=== PATIENT | male | born 1990 | race African-American/Black ===

== ENCOUNTER 2016-12-17 17:52 | Emergency (ER) | payer OTHER ==
[2016-12-17 18:50] VITALS: BP 123/75; PULSE 81; RESP 16; TEMP 98.7
[2016-12-17] MEDS ORDERED: PROPARACAINE 0.5% OPHTH DROPS 15 ML BTL BOTH EYES STA (19:08)
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
[2016-12-17] MEDS ORDERED: ERYTHROMYCIN 5 MG/GM OPHTH OINT 3.5 GM TUBE LEFT EYE SCH (20:00)
[2016-12-17] MEDS ORDERED: IBUPROFEN 800 MG TAB PO STA (20:22)
[2016-12-17] MEDS ORDERED: ACETAMINOPHEN TAB 500 MG TAB PO STA (20:22)
== END 2016-12-17 20:41 | disposition home or self-care (01) ==
LOC: EC 17:52
DX: H11.32 Conjunctival hemorrhage, left eye (principal); S30.1XXA Contusion of abdominal wall, initial encounter; R51 Headache; Y04.8XXA Assault by other bodily force, initial encounter
CPT/HCPCS: 70486; 99284

== ENCOUNTER 2022-03-23 12:41 | Emergency (ER) | payer OTHER ==
[2022-03-23 12:46] VITALS: BP 119/76; PULSE 80; RESP 16; TEMP 98.2
--- NOTE | 2022-03-23 12:56 | ED ---
ENT HPI - General Chief complaint: ENT Stated complaint: COVID test Time Seen by Provider: 03/23/22 12:50 Source: patient, RN notes reviewed, old records reviewed Mode of arrival: ambulatory Limitations: no limitations - History of Present Illness Initial comments: This is a well-appearing 31-year-old male that presents to the emergency room ambulatory with complaints of a sore throat and body aches since this morning. Patient denies any fevers, no nausea vomiting or diarrhea. He states that he just wants a Covid test to see if he has been infected before he goes back to work. Patient does smoke marijuana daily, denies cigarette use. MD complaint: sore throat, other (body aches) Location: throat Severity scale (1-10): 0 Quality: other (sore) Associated Symptoms: sore throat, other (Bodyaches) - Related Data Previous Rx's Medication Instructions Recorded Erythromycin Ophth Oint [Romycin 1 applic LEFT EYE QID #1 gm 12/17/16 Ophth Oint] Nirmatrelvir/Ritonavir [Paxlovid 1 each PO BID 5 Days #1 pack 03/23/22 150-100 mg Pack (Eua)] Allergies Allergy/AdvReac Type Severity Reaction Status Date / Time No Known Allergies Allergy Verified 03/23/22 12:46 Review of Systems ROS Statement: Those systems with pertinent positive or pertinent negative responses have been documented in the HPI. ROS Other: All systems not noted in ROS Statement are negative. Past Medical History Past Medical History: No Reported History Additional Past Medical History / Comment(s): . History of Any Multi-Drug Resistant Organisms: None Reported Past Surgical History: No Surgical Hx Reported Past Psychological History: No Psychological Hx Reported Past Alcohol Use History: None Reported Past Drug Use History: Marijuana General Exam Limitations: no limitations General appearance: alert, in no apparent distress Head exam: Present: atraumatic Eye exam: Present: EOMI. Absent: conjunctival injection, periorbital swelling, periorbital tenderness ENT exam: Present: normal oropharynx, mucous membranes moist Expanded Mouth exam: Present: tongue normal, tongue elevation. Absent: drooling, trismus, muffled voice Throat exam: negative: tonsillar erythema, tonsillomegaly, tonsillar exudate, R peritonsillar mass, L peritonsillar mass Neck exam: Present: normal inspection, full ROM. Absent: tenderness, meningismus, lymphadenopathy Respiratory exam: Present: normal lung sounds bilaterally. Absent: respiratory distress, accessory muscle use Cardiovascular Exam: Present: regular rate GI/Abdominal exam: Present: soft Extremities exam: Present: normal capillary refill Back exam: Absent: tenderness, CVA tenderness (R), CVA tenderness (L) Neurological exam: Present: alert, oriented X3, normal gait Psychiatric exam: Absent: normal affect, normal mood Skin exam: Present: warm, dry, normal color. Absent: cyanosis, diaphoretic Course Vital Signs 03/23/22 12:45 Temperature 98.2 F Pulse Rate 80 Respiratory 16 Rate Blood Pressure 119/76 O2 Sat by Pulse 98 Oximetry Medical Decision Making - Medical Decision Making Vital signs are stable, oxygen saturation is 98% on room air. Lungs sounds are clear to auscultation. Patient is afebrile. His coronavirus testing is positive. He has not been vaccinated. He was offered Paxlovid which he agreed to. Prescription was called into his pharmacy. He was directed to follow-up with his primary care doctor. Return to the emergency room with any new or concerning symptoms. He is agreeable to this plan of care. Case was discussed with Dr Olson. - Lab Data Lab Results 03/23/22 Range/Units 12:59 Coronavirus (PCR) Detected A (Not Detectd) Disposition Clinical Impression: COVID-19 Disposition: HOME SELF-CARE Condition: Good Instructions (If sedation given, give patient instructions): COVID-19 (Coronavirus Disease 2019) (ED) Additional Instructions: Self quarantine for 10 days from symptom onset. If after 5 days you have no symptoms you can go into public wearing just a mask. I recommend vitamin C, vitamin D and zinc in addition to Tylenol and/or Motrin as needed for body aches or fevers. Return to emergency room with any new or concerning symptoms including difficulty breathing, chest pain or persistent nausea vomiting. Prescriptions: Nirmatrelvir/Ritonavir [Paxlovid 150-100 mg Pack (Eua)] 1 each PO BID 5 Days #1 pack Is patient prescribed a controlled substance at d/c from ED?: No Referrals: None,Stated [Primary Care Provider] - 1-2 days Time of Disposition: 13:30
== END 2022-03-23 13:50 | disposition home or self-care (01) ==
LOC: EC 12:41
DX: U07.1 COVID-19 (principal); F12.10 Cannabis abuse, uncomplicated
CPT/HCPCS: 87635; 99283

== ENCOUNTER 2022-08-23 09:57 | Emergency (ER) | payer OTHER ==
[2022-08-23 10:03] VITALS: BP 123/77; PULSE 68; RESP 18; TEMP 97.8
--- NOTE | 2022-08-23 10:18 | ED ---
Male Urogenital HPI - General Chief complaint: Urogenital Stated complaint: STD/STI test Time Seen by Provider: 08/23/22 10:07 Source: patient Mode of arrival: ambulatory - History of Present Illness Initial comments: Patient is a 32-year-old male who presents to the emergency department for STI testing. Patient had unprotected sex 5 days ago. His partner does not have a known STI. He is asymptomatic. Denies fever, chills, abdominal pain, nausea, vomiting, burning with urination, blood in the urine, penile discharge, lesions. - Related Data Previous Rx's Medication Instructions Recorded Erythromycin Ophth Oint [Romycin 1 applic LEFT EYE QID #1 gm 12/17/16 Ophth Oint] Nirmatrelvir/Ritonavir [Paxlovid 1 each PO BID 5 Days #1 pack 03/23/22 150-100 mg Pack (Eua)] Allergies Allergy/AdvReac Type Severity Reaction Status Date / Time No Known Allergies Allergy Verified 08/23/22 10:02 Review of Systems ROS Statement: Those systems with pertinent positive or pertinent negative responses have been documented in the HPI. ROS Other: All systems not noted in ROS Statement are negative. Past Medical History Past Medical History: No Reported History Additional Past Medical History / Comment(s): . History of Any Multi-Drug Resistant Organisms: None Reported Past Surgical History: No Surgical Hx Reported Past Psychological History: No Psychological Hx Reported Smoking Status: Never smoker Past Alcohol Use History: None Reported Past Drug Use History: None Reported, Marijuana General Exam General appearance: alert, in no apparent distress Head exam: Present: atraumatic, normocephalic, normal inspection Eye exam: Present: normal appearance, PERRL, EOMI. Absent: scleral icterus, conjunctival injection, periorbital swelling Respiratory exam: Present: normal lung sounds bilaterally. Absent: respiratory distress, wheezes, rales, rhonchi, stridor Cardiovascular Exam: Present: regular rate, normal rhythm, normal heart sounds. Absent: systolic murmur, diastolic murmur, rubs, gallop, clicks GI/Abdominal exam: Present: soft, normal bowel sounds. Absent: distended, tenderness, guarding, rebound, rigid Neurological exam: Present: alert, oriented X3, CN II-XII intact Psychiatric exam: Present: normal affect, normal mood Skin exam: Present: warm, dry, intact, normal color. Absent: rash Course Vital Signs 08/23/22 09:58 Temperature 97.8 F Pulse Rate 68 Respiratory 18 Rate Blood Pressure 123/77 O2 Sat by Pulse 100 Oximetry Medical Decision Making - Medical Decision Making Was pt. sent in by a medical professional or institution (ZIA Dailey, TELEPHONE ORDER SUPERVISOR, urgent care, hospital, or half-way...) When possible be specific @ -[No] Did you speak to anyone other than the patient for history (EMS, parent, family, police, friend...)? What history was obtained from this source @ -[No] Did you review nursing and triage notes (agree or disagree)? Why? @ -[I reviewed and agree with nursing and triage notes] Were old charts reviewed (outside hosp., previous admission, EMS record, old EKG, old radiological studies, urgent care reports/EKG's, half-way records)? Report findings @ -[No old charts were reviewed] Differential Diagnosis (chest pain, altered mental status, abdominal pain women, abdominal pain men, vaginal bleeding, weakness, fever, dyspnea, syncope, headach e, dizziness, GI bleed, back pain, seizure, CVA, palpatations, mental health)? @ -chlamydia, gonorrhea, trichomonas EKG interpreted by me (3pts min.). @ -[As above] X-rays interpreted by me (1pt min.). @ -[None done] CT interpreted by me (1pt min.). @ -[None done] U/S interpreted by me (1pt. min.). @ -[None done] What testing was considered but not performed or refused? (CT, X-rays, U/S, labs)? Why? @ -[None] What meds were considered but not given or refused? Why? @ Considered giving empiric treatment for sexually transmitted infection however patient declined Did you discuss the management of the patient with other professionals (professionals i.e. ZIA Dailey, TELEPHONE ORDER SUPERVISOR, lab, RT, psych nurse, social media intern, photographer scientific, teacher, adult parole officer, block and case maker)? Give summary @ -[No] Was smoking cessation discussed for >3mins.? @ -[No] Was critical care preformed (if so, how long)? @ -[No] Were there social determinants of health that impacted care today? How? (Homelessness, low income, unemployed, alcoholism, drug addiction, transportation, low edu. Level, literacy, decrease access to med. care, fpc, rehab)? @ -[No] Was there de-escalation of care discussed even if they declined (Discuss DNR or withdrawal of care, Hospice)? DNR status @ -[No] What co-morbidities impacted this encounter? (DM, HTN, Smoking, COPD, CAD, Cancer, CVA, ARF, Chemo, Hep., AIDS, mental health diagnosis, sleep apnea, morbid obesity)? @ -[None] Was patient admitted / discharged? Hospital course, mention meds given and rout e, prescriptions, significant lab abnormalities, going to OR and other pertinent info. @ -This is an asymptomatic 32-year-old presenting for STI testing. Chlamydia, gonorrhea, Trichomonas tested via urine. Patient would like to wait for results before starting treatment. He will be discharged Undiagnosed new problem with uncertain prognosis? @ -[No] Drug Therapy requiring intensive monitoring for toxicity (Heparin, Nitro, Insulin, Cardizem)? @ -[No] Were any procedures done? @ -[No] Diagnosis/symptom? @ -screening for STI testing Acute, or Chronic, or Acute on Chronic? @ acute Uncomplicated (without systemic symptoms) or Complicated (systemic symptoms)? @ -uncomplicated Side effects of treatment? @ -[No] Exacerbation, Progression, or Severe Exacerbation? @ -[No] Poses a threat to life or bodily function? How? (Chest pain, [place], [place], pneumonia, PE, COPD, DKA, ARF, appy, cholecystitis, CVA, Diverticulitis, Homicidal, Suicidal, threat to staff... and all critical care pts) @ -[No] Dr. North is my attending. Disposition Clinical Impression: Screen for sexually transmitted diseases Disposition: HOME SELF-CARE Condition: Good Instructions (If sedation given, give patient instructions): Sexually Transmitted Diseases (ED), Male Condom Use (ED), Safe Sex Practices (ED) Additional Instructions: You will receive a phone call if your results are positive in one to 3 days. You can also call the hospital for results. Follow-up with primary care provider in one to 2 days. Return to the emergency department if you experience new, concerning, or worsening symptoms. Is patient prescribed a controlled substance at d/c from ED?: No Referrals: None,Stated [Primary Care Provider] - 1-2 days
[2022-08-23 10:22] LABS: Appearance,Urine Clear (Clear); Bilirubin,Urine Negative (Negative); Blood,Urine Negative (Negative); Color,Urine Yellow; Glucose,Urine (UA) Negative (Negative); Ketones,Urine Negative (Negative); Leukocyte Esterase,Urine Negative (Negative); Nitrite,Urine Negative (Negative); Protein,Urine Negative (Negative); Urobilinogen,Urine <2.0 mg/dL (<2.0)
[2022-08-24 13:43] LABS: C. trachomatis,PCR Negative (Neg,Equiv); Chlamydia trachomatis Source Urine; N. gonorrhoeae,PCR Negative (Neg,Equiv); Neisseria Source Urine
== END 2022-08-23 10:30 | disposition home or self-care (01) ==
LOC: EC 09:57
DX: Z11.3 Encounter for screening for infections with a predominantly sexual mode of transmission (principal); F12.90 Cannabis use, unspecified, uncomplicated
CPT/HCPCS: 81003; 87491; 87591; 87661; 99283

== ENCOUNTER 2022-08-25 11:47 | Emergency (ER) | payer OTHER ==
[2022-08-25 11:52] VITALS: BP 114/74; PULSE 95; RESP 18; TEMP 98.2
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
== END 2022-08-25 12:26 | disposition home or self-care (01) ==
LOC: EC 11:47
DX: Z00.00 Encounter for general adult medical examination without abnormal findings (principal)
CPT/HCPCS: 99283

== ENCOUNTER 2022-10-24 19:06 | Emergency (ER) | payer OTHER ==
[2022-10-24 19:17] VITALS: BP 123/82; PULSE 107; RESP 18; TEMP 98.9
[2022-10-24] MEDS ORDERED: KETOROLAC 15 MG/ML 1 ML VIAL IM STA (19:23)
--- NOTE | 2022-10-24 19:49 | XR ---
EXAMINATION TYPE: XR shoulder complete RT DATE OF EXAM: 10/24/2022 COMPARISON: NONE HISTORY: Shoulder pain TECHNIQUE: 3 views FINDINGS: There is no evidence of fracture nor dislocation. Glenohumeral joint is intact. There is 1 cm calcification in the axilla consistent with calcified lymph node. AC joint is intact IMPRESSION: Negative right shoulder exam. No fracture.
--- NOTE | 2022-10-24 19:50 | XR ---
EXAMINATION TYPE: XR wrist complete LT DATE OF EXAM: 10/24/2022 COMPARISON: NONE HISTORY: Wrist pain TECHNIQUE: 4 view FINDINGS: There is nondisplaced 1.4 cm chip fracture of the radial styloid process. There is no dislo cation. Carpal bones are intact. Scaphoid is intact. IMPRESSION: Acute nondisplaced radial styloid process fracture.
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
== END 2022-10-24 20:45 | disposition home or self-care (01) ==
LOC: EC 19:06
DX: S52.512A Displaced fracture of left radial styloid process, initial encounter for closed fracture (principal); X58.XXXA Exposure to other specified factors, initial encounter
CPT/HCPCS: 73030; 73110; 29125; 99283; 96372; J1885

== ENCOUNTER 2023-01-24 11:01 | Emergency (ER) | payer OTHER ==
[2023-01-24] MEDS ORDERED: KETOROLAC 15 MG/ML 1 ML VIAL IM STA (11:36)
[2023-01-24] MEDS ORDERED: HYDROmorphone 0.5 MG/0.5 ML SYRINGE IM STA (11:37)
--- NOTE | 2023-01-24 12:52 | XR ---
EXAMINATION TYPE: XR femur RT, XR tibia fibula RT, XR Hip RT and AP Pelvis DATE OF EXAM: 01/24/2023 12:36 PM INDICATION: Patient age:Male; 32 years old; Reason for study: injury; COMPARISON: None TECHNIQUE: The right femur was examined in Frontal and lateral projections. Right tibia and fibula are evaluated in frontal and lateral views. Right hip was evaluated in frontal and lateral views. FINDINGS/IMPRESSION: Acute spiral fracture of the distal fibula with soft tissue swelling. No additio nal fractures visualized femur patella and tibia appear intact.
[2023-01-24] MEDS ORDERED: ONDANSETRON ODT 4 MG TAB PO STA (13:00)
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
[2023-01-24] MEDS ORDERED: HYDROcodone/APAP 7.5-325MG 1 EACH TAB PO ONE (13:18)
[2023-01-24 14:46] VITALS: BP 114/68; PULSE 80; RESP 16; TEMP 98
== END 2023-01-24 14:46 | disposition home or self-care (01) ==
LOC: EC 11:01
DX: S82.401A Unspecified fracture of shaft of right fibula, initial encounter for closed fracture (principal); F12.90 Cannabis use, unspecified, uncomplicated; X58.XXXA Exposure to other specified factors, initial encounter; Y93.43 Activity, gymnastics
CPT/HCPCS: 73502; 73552; 73590; 99284; 96372 ×2; 29515; J1885; J1170

== ENCOUNTER 2023-01-26 13:46 | Day surgery (SDC) | payer OTHER ==
[2023-01-25 08:32] VITALS: BMI 23.5
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
[~2023-01-26 13:46] MED LIST: DEXAMETHASONE SOD PHOSPHATE 4 MG/ML 1 ML VIAL IV ONE; HYDROmorphone 0.5 MG/0.5 ML SYRINGE IVP PRN; LACTATED RINGERS 1,000 ML IV SCH; ONDANSETRON 4 MG/2 ML VIAL IVP ONE
[2023-01-26] MEDS ORDERED: MIDAZOLAM 2 MG/2 ML VIAL IVP ONE (14:43)
[2023-01-26] MEDS ORDERED: SUCCINYLCHOLINE CHLORIDE 200 MG/10 ML VIAL IV ONE (15:51)
[2023-01-26] MEDS ORDERED: MIDAZOLAM 2 MG/2 ML VIAL ONE (15:51)
[2023-01-26] MEDS ORDERED: PROPOFOL 10 MG/ML 20 ML VIAL IV ONE (15:51)
[2023-01-26] MEDS ORDERED: fentaNYL (PF) 50 MCG/ML 2 ML AMP ONE (15:51)
[2023-01-26] MEDS ORDERED: ROPIVACAINE 5 MG/ML 30 ML VIAL ONE (15:51)
[2023-01-26] MEDS ORDERED: GLYCOPYRROLATE 0.2 MG/ML 2 ML VIAL ONE (15:51)
[2023-01-26] MEDS ORDERED: LIDOCAINE 2% INJ 20 MG/ML (2 ML VIAL) ONE (15:51)
[2023-01-26] MEDS ORDERED: ROCURONIUM 10 MG/ML (5 ML VIAL) IV ONE (15:51)
[2023-01-26] MEDS ORDERED: NEOSTIGMINE 1 MG/ML 10 ML VIAL ONE (15:51)
[2023-01-26] MEDS ORDERED: LACTATED RINGERS 1,000 ML IV ONE (16:21)
--- NOTE | 2023-01-26 17:32 | FL ---
Intraoperative/procedural fluoroscopic services were provided. Total fluoroscopy time is 1 minute 3 s econds with a total of 5 submitted images to PACS. Please see the operative/procedural note for furth er details. DAP: 0.07 mGym2
--- NOTE | 2023-01-26 17:34 | P.OP ---
Date of Procedure: 01/26/23 Preoperative Diagnosis: Right lateral malleolar ankle fracture with syndesmotic disruption Postoperative Diagnosis: Same Procedure(s) Performed: Open reduction and internal fixation right lateral malleolar ankle fracture with syndesmotic fixation Implants: 7 hole one third tubular plate, tight rope syndesmotic fixation device Anesthesia: paty ROSS Surgeon: Carloz Munguia Epilepsy Physician #1: Hemant Mendosa Estimated Blood Loss (ml): 10 Pathology: none sent Condition: stable Disposition: PACU Indications for Procedure: The patient's a 32-year-old male presents after injuring his right ankle recently. Upon evaluation he is noted of a closed right lateral malleolar ankle fracture with syndesmotic discharge. A discussion the risks and benefits of operative intervention versus continued conservative measures was made with cong ent. He opted to proceed with surgery. Operative risks to include infection, neurovascular injury, development of blood clots, possible loss of fixation, and possible need for subsequent procedures was discussed. Informed consent was obtained. Operative Findings: As below Description of Procedure: The patient was brought to the operating room, and after induction of general anesthesia the right lower extremity was prepped and draped in normal fashion. The limb was elevated to facilitate exsanguination. The tourniquet was inflated to 250 mmHg. An 8 cm incision was then made along the posterior lateral border of the distal fibula. Skin was incised sharply. Subcutaneous tissues were divided bluntly. Electrocautery was used for hemostasis. The fracture site was identified and cleaned of clot and debris. This was then secured in place with a reduction clamp. This was verified with fluoroscopy. An anterior to posterior lag screw was inserted with good purchase. A 7-hole one third tubular plate was then contoured and placed laterally in a neutralization fashion. A was attached proximally with 3.5 mm cortical screws the appropriate length. Distally 4.0 mm cancellus screws of the appropriate length were placed. Again this was done with the aid of fluoroscopy. There was significant widening of the medial clear space. I then planned on syndesmotic fixation through the plate with a tight rope syndesmotic fixation device. This was deployed and with the ankle in neutral dorsiflexion was fully tightened and secured. AP and mortise views showed adequate bahai of the medial clear space. Wound was irrigated with normal saline. The subcutaneous tissues were reapproximated with interrupted 2-0 Vicryl sutures. The skin was reapproximated with 3-0 subcutaneous Prolene suture. Steri-Strips were applied. A sterile dressing was applied in addition to a bulky splint. The tourniquet was deflated less than 45 minutes total tourniquet time. The patient was transferred to recovery room in good condition. Blood loss was estimated 10 mL. No complications were incurred. Sponge and needle counts were correct in the case. Hemant LIZARRAGA assisted during the major components the case to include positioning, exposure, implantation, and closure.
[2023-01-26 17:38] VITALS: TEMP 97.8
[2023-01-26] MEDS ORDERED: HYDROmorphone 0.5 MG/0.5 ML SYRINGE IVP ONE ×2 (17:50→18:07)
[2023-01-26 18:40] VITALS: BP 140/71; PULSE 70; RESP 15
--- NOTE | 2023-01-26 20:43 | P.ANPRN ---
Procedure Note - Anesthesia - Nerve Block Performed Right Popliteal Single Time Out Performed: Yes Date of Procedure: 01/26/23 Procedure Start Time: 14:42 Procedure Stop Time: 14:46 Location of Patient: PreOp Indication: Acute Post-Operative Pain, Requested by Surgeon Sedation Type: Sedate with meaningful contact maintained Preparation: Sterile Prep Position: Left Lateral Needle Types: Pajunk Needle Gauge: 21 Ultrasound used to visualize needle placement: Yes Ultrasound used to observe medication spread: Yes Blood Aspirated: No Pain Paresthesia on Injection Noted: No Resistance on Injection: Normal Image Stored and Saved: Yes Events: Uneventful and Well Tolerated (Ropivacaine 0.5% 20 mL plus dexamethasone 4 mg)
== END 2023-01-26 19:07 | disposition home or self-care (01) ==
LOC: OR 13:46
PROVIDERS: ATTEND Orthopaedic Surgery
DX: S82.61XA Displaced fracture of lateral malleolus of right fibula, initial encounter for closed fracture (principal); X58.XXXA Exposure to other specified factors, initial encounter; Z79.899 Other long term (current) drug therapy
CPT/HCPCS: 73600; 27792; J2250; J1100; J2405; J0690; J1170; 64445

== ENCOUNTER 2024-03-31 23:17 | Emergency (ER) | payer OTHER ==
[~2024-03-31 23:17] MED LIST changes: -DEXAMETHASONE SOD PHOSPHATE 4 MG/ML 1 ML VIAL IV ONE; -HYDROmorphone 0.5 MG/0.5 ML SYRINGE IVP PRN; +KETOROLAC 15 MG/ML 1 ML VIAL ONE; -LACTATED RINGERS 1,000 ML IV SCH; -ONDANSETRON 4 MG/2 ML VIAL IVP ONE
--- NOTE | 2024-04-25 08:32 | XR ---
Report Patient: Wil Cabral L Ordering Physician: Unknown, Unknown ID: [id number] Phone, Pager: Phone: N/A Pager: N/A : 1990 Age/Gender: 33Y, M Primary Location: N/A Procedure: XR SHOULDER COMPLETE RT Study Date: 03/31/2024 9:58:52 PM EXAMINATION TYPE: XR shoulder complete 3 views RT DATE OF EXAM: 03/31/2024 Comparison: None Clinical History: 33-year-old male with pain Findings: There is widening at the AC joint up to 9 mm. No abnormal offset. Irregularity and densities at the g reater tuberosity. Glenohumeral joint appears intact. Visualized right hemithorax is clear. Subacromi al space is preserved. Impression: 1. Further clinical correlation is recommended. There is irregularity and densities at the greater tu berosity. Unclear if this represents a nondisplaced fracture of the greater tuberosity or superimpose d calcification such as in the setting of calcific tendinitis. If a fracture is present, this could b e a potential functional rotator cuff tear. 2. Widened AC joint space up to 9 mm but without any abnormal offset. Query any old injury. If there was an acute injury, consider views of the AC joints without and with weights.
== END 2024-03-31 23:21 ==
LOC: EC 23:17
CPT/HCPCS: 96372; 99283

== ENCOUNTER → 2024-04-25 | Outpatient (CLI) | payer OTHER ==
--- NOTE | 2024-04-26 23:43 | MR ---
EXAMINATION TYPE: MR shoulder RT wo con DATE OF EXAM: 04/25/2024 COMPARISON: Right shoulder x-ray March 31, 2024 HISTORY: right shoulder pain for 1 month with difficulty raising arm overhead. Injury one month ago. TECHNIQUE: Multiplanar, multisequence imaging of the right shoulder is performed without contrast. FINDINGS: Rotator Cuff: Some increased signal with surrounding fluid in the infraspinatus tendon and some incre ased signal in the supraspinatus tendon. Subscapularis tendon is intact. Rotator cuff muscle bulk is preserved. Acromioclavicular Joint: No significant narrowing. No significant spurring. Glenohumeral Joint: Small to moderate size joint effusion. No significant spurring. Labrum: The labrum appears grossly intact given limitation of non-arthrogram study. Biceps Tendon: The long head of biceps is in normal location within bicipital groove. Bone marrow signal: There is linear diminished T1 signal involving the superolateral aspect of the hu meral head at the greater tuberosity. There is marked increased T2 signal involving the superior late ral aspect of the humeral head. Other: No additional significant abnormality is appreciated. IMPRESSION: 1. Confirmation of avulsion type fracture involving superior lateral aspect of the humeral head inclu ding greater tuberosity at the site of rotator cuff tendon insertion. 2. No suspicious AC joint widening currently. 3. Some tendinosis of the supraspinatus and infraspinatus tendons is noted. [facility], , 04/26/2024 11:41 PM
== END | disposition home or self-care (01) ==
LOC: RADMRIMAIN 19:00
PROVIDERS: ATTEND Orthopaedic Surgery
DX: M25.511 Pain in right shoulder

== ENCOUNTER 2024-06-13 12:53 | Emergency (ER) | payer OTHER ==
--- NOTE | 2024-06-13 14:02 | XR ---
EXAMINATION TYPE: XR shoulder complete RT DATE OF EXAM: 06/13/2024 COMPARISON: NONE CLINICAL INDICATION: Male, 34 years old with history of fall, pain; TECHNIQUE: Three views are submitted. FINDINGS: There is a chronic deformity of the humeral head similar to prior exam likely in the basis of prior t rauma or shoulder dislocation. Calcification along the humeral head can be associated with calcific t endinosis of the rotator cuff. Nonspecific calcification right axilla. AC joint measures 6.5 mm and i s widened. This also is stable. IMPRESSION: 1. Deformity of the right humeral head has mildly progressed from prior exam most likely in the basis of prior trauma or dislocation. Consider follow-up CT scan if point tender to exclude acute injury a s a acute component of fracture not excluded. 2. Calcific tendinosis of the rotator cuff. 3. Chronic stable widening of the AC joint can be associated with AC joint separation. [facility], , 06/13/2024 1:59 PM
--- NOTE | 2024-06-13 14:03 | XR ---
EXAMINATION TYPE: XR hand complete RT DATE OF EXAM: 06/13/2024 COMPARISON: NONE CLINICAL INDICATION: Male, 34 years old with history of fall, pain; TECHNIQUE: Three views are submitted. FINDINGS: There is a displaced intra-articular fracture base fifth metacarpal. Remaining osseous structures int act. No erosive changes. Joint spaces preserved. IMPRESSION: 1. Displaced intra-articular fracture base fifth metacarpal. [facility], , 06/13/2024 2:01 PM
[2024-06-13] MEDS: HYDROcodone/APAP 5-325MG 1 EACH TAB PO STA (14:14)
--- NOTE | 2024-06-13 14:35 | ED ---
Upper Extremity HPI - General Chief Complaint: Extremity Injury, Upper Stated Complaint: R arm injury Time Seen by Provider: 06/13/24 13:05 Source: patient, RN notes reviewed Mode of arrival: ambulatory Limitations: no limitations - History of Present Illness Initial Comments: 34-year-old male presents emergency department chief complaint of a fall. Pat ient states he was on a ladder at work and when he states he was working on and some flashing of the roof and states that he fell over onto his right side complains of right shoulder, right wrist pain. Patient denies any head injury no loss conscious. - Related Data Previous Rx's Medication Instructions Recorded Ibuprofen [Motrin] 600 mg PO Q6HR PRN #30 tab 01/24/23 HYDROcodone/APAP 7.5-325MG [[place] 1 tab PO Q4HR PRN 3 Days #18 tab 01/25/23 7.5-325] HYDROcodone/APAP 7.5-325MG [[place] 1 tab PO Q6HR PRN #28 tab 01/26/23 7.5-325] hydrOXYzine pamoate [Vistaril] 25 mg PO TID #21 capsule 01/26/23 Allergies Allergy/AdvReac Type Severity Reaction Status Date / Time No Known Allergies Allergy Verified 06/13/24 13:03 Review of Systems ROS Statement: Those systems with pertinent positive or pertinent negative responses have been documented in the HPI. ROS Other: All systems not noted in ROS Statement are negative. Past Medical History Past Medical History: No Reported History Additional Past Medical History / Comment(s): FX RT ANKLE 01/23/23. History of Any Multi-Drug Resistant Organisms: None Reported Past Surgical History: No Surgical Hx Reported Past Anesthesia/Blood Transfusion Reactions: No Reported Reaction Past Psychological History: No Psychological Hx Reported Smoking Status: Never smoker Past Alcohol Use History: None Reported Past Drug Use History: None Reported - Past Family History Mother Family Medical History: No Reported History General Exam Limitations: no limitations General appearance: alert, in no apparent distress Head exam: Present: atraumatic, normocephalic, normal inspection Neck exam: Present: normal inspection, full ROM. Absent: tenderness, meningismus, lymphadenopathy Respiratory exam: Present: normal lung sounds bilaterally. Absent: respiratory distress, wheezes, rales, rhonchi, stridor, chest wall tenderness Cardiovascular Exam: Present: regular rate, normal rhythm, normal heart sounds. Absent: systolic murmur, diastolic murmur, rubs, gallop, clicks Extremities exam: Present: other (Right hand there is diffuse swelling, tenderness over the fourth and fifth metacarpal region neurovascular intact no wrist tenderness no forearm, right elbow tenderness there is moderate tenderness to the right shoulder no clavicular tenderness) Back exam: Present: normal inspection, full ROM. Absent: tenderness, paraspinal tenderness, vertebral tenderness Neurological exam: Present: alert, oriented X3, CN II-XII intact, reflexes normal. Absent: motor sensory deficit Course Vital Signs 06/13/24 06/13/24 06/13/24 13:00 13:42 14:44 Temperature 98.1 F 98 F Pulse Rate 70 63 65 Respiratory 20 17 18 Rate Blood Pressure 134/79 117/80 120/77 O2 Sat by Pulse 99 100 99 Oximetry Procedures - Orthopedic Splinting/Casting Injury #1 Side: right Upper Extremity Injury Location: short arm, hand Upper Extremity Immobilizer: sling/shoulder immobilizer, ulnar gutter, synthetic pre-padded splint Medical Decision Making - Medical Decision Making Was pt. sent in by a medical professional or institution (, PA, MIRROR SPECIALIST, urgent care, hospital, or usp...) When possible be specific @ -No Did you speak to anyone other than the patient for history (EMS, parent, family, police, friend...)? What history was obtained from this source @ -No Did you review nursing and triage notes (agree or disagree)? Why? @ -I reviewed and agree with nursing and triage notes Were old charts reviewed (outside hosp., previous admission, EMS record, old EKG, old radiological studies, urgent care reports/EKG's, usp records)? Report findings @ -No old charts were reviewed Differential Diagnosis (chest pain, altered mental status, abdominal pain women, abdominal pain men, vaginal bleeding, weakness, fever, dyspnea, syncope, headache, dizziness, GI bleed, back pain, seizure, CVA, palpatations, mental health, musculoskeletal)? @ -Fall, Hand fracture, hand sprain, shoulder dislocation arm fracture EKG interpreted by me (3pts min.). @ -None X-rays interpreted by me (1pt min.). @ -X-ray right shoulder shows chronic changes slightly worse than prior, no dislocation Right hand x-ray 3 view shows fifth metacarpal fracture CT interpreted by me (1pt min.). @ -None done U/S interpreted by me (1pt. min.). @ -None done What testing was considered but not performed or refused? (CT, X-rays, U/S, labs)? Why? @ -None What meds were considered but not given or refused? Why? @ -None Did you discuss the management of the patient with other professionals (professionals i.e. , PA, MIRROR SPECIALIST, lab, RT, psych nurse, social services specialist, office runner, teacher, guest relations officer, piano case and bench assembler)? Give summary @ -No Was smoking cessation discussed for >3mins.? @ -No Was critical care preformed (if so, how long)? @ -No Were there social determinants of health that impacted care today? How? (Homelessness, low income, unemployed, alcoholism, drug addiction, transportation, low edu. Level, literacy, decrease access to med. care, correction, rehab)? @ -No Was there de-escalation of care discussed even if they declined (Discuss DNR or withdrawal of care, Hospice)? DNR status @ -No What co-morbidities impacted this encounter? (DM, HTN, Smoking, COPD, CAD, Cancer, CVA, ARF, Chemo, Hep., AIDS, mental health diagnosis, sleep apnea, morbid obesity)? @ -None Was patient admitted / discharged? Hospital course, mention meds given and route, prescriptions, significant lab abnormalities, going to OR and other pertinent info. @ -Discharge patient presented for a fall patient has a right hand fracture, chronic shoulder changes with worsening appearance was placed in a sling will follow-up with orthopedics. Undiagnosed new problem with uncertain prognosis? @ -No Drug Therapy requiring intensive monitoring for toxicity (Heparin, Nitro, Insulin, Cardizem)? @ -No Were any procedures done? @ -Splinting Diagnosis/symptom? @ -Right fifth metacarpal fracture, right shoulder strain Acute, or Chronic, or Acute on Chronic? @ -Acute Uncomplicated (without systemic symptoms) or Complicated (systemic symptoms)? @ -Uncomplicated Side effects of treatment? @ -No Exacerbation, Progression, or Severe Exacerbation? @ -No Poses a threat to life or bodily function? How? (Chest pain, [place], [place], pneumonia, PE, COPD, DKA, ARF, appy, cholecystitis, CVA, Diverticulitis, Homicidal, Suicidal, threat to staff... and all critical care pts) @ -No Disposition Clinical Impression: Strain of shoulder, Right hand fracture Disposition: HOME SELF-CARE Condition: Stable Instructions (If sedation given, give patient instructions): Hand Fracture (ED) Additional Instructions: Please return to the Emergency Department if symptoms worsen or any other concerns. Is patient prescribed a controlled substance at d/c from ED?: No Referrals: None,Stated [Primary Care Provider] - 1-2 days Kee Diallo MD [STAFF PHYSICIAN] - 1-2 days Time of Disposition: 14:35
[2024-06-13] MEDS: ACET/COD 300 MG/30 MG STARTER PACK 6 TAB BTL PO STA (14:39)
[2024-06-13 14:46] VITALS: BP 120/77; PULSE 65; RESP 18; TEMP 98
== END 2024-06-13 15:02 | disposition home or self-care (01) ==
LOC: EC 12:53
DX: S62.91XA Unspecified fracture of right hand, initial encounter for closed fracture (principal); W11.XXXA Fall on and from ladder, initial encounter
CPT/HCPCS: 29125; 99283

== ENCOUNTER 2024-11-06 06:22 | Emergency (ER) | payer SELFPAY ==
--- NOTE | 2024-11-06 06:50 | ED ---
URI HPI - General Chief Complaint: Upper Respiratory Infection Stated Complaint: NVD,Chills Time Seen by Provider: 11/06/24 06:28 Source: patient, RN notes reviewed Mode of arrival: ambulatory Limitations: no limitations - History of Present Illness Initial Comments: 34-year-old male presents emergency department chief complaint of fever chills cough congestion. Patient states symptoms started slightly into Tuesday department yesterday. Patient states he has diffuse bodyaches denies any nausea vomit diarrhea constipation has had multiple sick contacts. Denies any chest pain or shortness of breath admit to intermittent headaches he has not taken recent antipyretics. - Related Data Previous Rx's Medication Instructions Recorded Ibuprofen [Motrin] 600 mg PO Q6HR PRN #30 tab 01/24/23 HYDROcodone/APAP 7.5-325MG [[place] 1 tab PO Q4HR PRN 3 Days #18 tab 01/25/23 7.5-325] HYDROcodone/APAP 7.5-325MG [[place] 1 tab PO Q6HR PRN #28 tab 01/26/23 7.5-325] hydrOXYzine pamoate [Vistaril] 25 mg PO TID #21 capsule 01/26/23 Allergies Allergy/AdvReac Type Severity Reaction Status Date / Time No Known Allergies Allergy Verified 11/06/24 06:26 Review of Systems ROS Statement: Those systems with pertinent positive or pertinent negative responses have been documented in the HPI. ROS Other: All systems not noted in ROS Statement are negative. Past Medical History Past Medical History: No Reported History Additional Past Medical History / Comment(s): FX RT ANKLE 01/23/23. History of Any Multi-Drug Resistant Organisms: None Reported Past Surgical History: No Surgical Hx Reported Past Anesthesia/Blood Transfusion Reactions: No Reported Reaction Past Psychological History: No Psychological Hx Reported Smoking Status: Never smoker Past Alcohol Use History: None Reported Past Drug Use History: None Reported - Past Family History Mother Family Medical History: No Reported History General Exam Limitations: no limitations General appearance: alert, in no apparent distress Head exam: Present: atraumatic, normocephalic, normal inspection Eye exam: Present: normal appearance, PERRL, EOMI. Absent: scleral icterus, conjunctival injection, periorbital swelling ENT exam: Present: normal exam, normal oropharynx, mucous membranes moist, TM's normal bilaterally Neck exam: Present: normal inspection, full ROM. Absent: tenderness, meningismus, lymphadenopathy Respiratory exam: Present: normal lung sounds bilaterally. Absent: respiratory distress, wheezes, rales, rhonchi, stridor Cardiovascular Exam: Present: regular rate, normal rhythm, normal heart sounds. Absent: systolic murmur, diastolic murmur, rubs, gallop, clicks Neurological exam: Present: alert, oriented X3 Course Vital Signs 11/06/24 11/06/24 06:24 06:45 Temperature 98.4 F Pulse Rate 61 Respiratory 16 18 Rate Blood Pressure 118/79 O2 Sat by Pulse 98 Oximetry Medical Decision Making - Medical Decision Making Was pt. sent in by a medical professional or institution (ZIA Dailey, SWITCHBOARD WIRE WORKER HELPER, urgent care, hospital, or halfway...) When possible be specific @ -No Did you speak to anyone other than the patient for history (EMS, parent, family, police, friend...)? What history was obtained from this source @ -No Did you review nursing and triage notes (agree or disagree)? Why? @ -I reviewed and agree with nursing and triage notes Were old charts reviewed (outside hosp., previous admission, EMS record, old EKG, old radiological studies, urgent care reports/EKG's, halfway records)? Report findings @ -No old charts were reviewed Differential Diagnosis (chest pain, altered mental status, abdominal pain women, abdominal pain men, vaginal bleeding, weakness, fever, dyspnea, syncope, headache, dizziness, GI bleed, back pain, seizure, CVA, palpatations, mental health, musculoskeletal)? @ -COVID 19, RSV, influenza, pneumonia, acute bronchitis, URI, this list is not all inclusive EKG interpreted by me (3pts min.). @ -None X-rays interpreted by me (1pt min.). @ -None done CT interpreted by me (1pt min.). @ -None done U/S interpreted by me (1pt. min.). @ -None done What testing was considered but not performed or refused? (CT, X-rays, U/S, labs)? Why? @ -None What meds were considered but not given or refused? Why? @ -None Did you discuss the management of the patient with other professionals (professionals i.e. Dr., PA, SWITCHBOARD WIRE WORKER HELPER, lab, RT, psych nurse, manager social media, wet pour mixer, teacher, industrial relations officer, case manager specialist)? Give summary @ -No Was smoking cessation discussed for >3mins.? @ -No Was critical care preformed (if so, how long)? @ -No Were there social determinants of health that impacted care today? How? (Homelessness, low income, unemployed, alcoholism, drug addiction, transportation, low edu. Level, literacy, decrease access to med. care, fpc, rehab)? @ -No Was there de-escalation of care discussed even if they declined (Discuss DNR or withdrawal of care, Hospice)? DNR status @ -No What co-morbidities impacted this encounter? (DM, HTN, Smoking, COPD, CAD, Cancer, CVA, ARF, Chemo, Hep., AIDS, mental health diagnosis, sleep apnea, morbid obesity)? @ -None Was patient admitted / discharged? Hospital course, mention meds given and route, prescriptions, significant lab abnormalities, going to OR and other pertinent info. @ -Discharge patient with viral URI symptoms. Patient's no signs distress. Patient had negative Cepheid. Patient discharged in stable condition with department discussed. Undiagnosed new problem with uncertain prognosis? @ -No Drug Therapy requiring intensive monitoring for toxicity (Heparin, Nitro, Insulin, Cardizem)? @ -No Were any procedures done? @ -No Diagnosis/symptom? @ -URI Acute, or Chronic, or Acute on Chronic? @ -[Acute Uncomplicated (without systemic symptoms) or Complicated (systemic symptoms)? @ -Uncomplicated Side effects of treatment? @ -No Exacerbation, Progression, or Severe Exacerbation? @ -No Poses a threat to life or bodily function? How? (Chest pain, [place], [place], pneumonia, PE, COPD, DKA, ARF, appy, cholecystitis, CVA, Diverticulitis, Homicidal, Suicidal, threat to staff... and all critical care pts) @ -No - Lab Data Lab Results 11/06/24 Range/Units 06:43 Influenza Type A (PCR) Not Detected (Not Detectd) Influenza Type B (PCR) Not Detected (Not Detectd) RSV (PCR) Not Detected (Not Detectd) SARS-CoV-2 (PCR) Not Detected (Not Detectd) Disposition Clinical Impression: Acute upper respiratory infection Disposition: HOME SELF-CARE Condition: Stable Instructions (If sedation given, give patient instructions): Upper Respiratory Infection (ED) Additional Instructions: Please return to the Emergency Department if symptoms worsen or any other concerns. Is patient prescribed a controlled substance at d/c from ED?: No Referrals: Tera Howard MD [Primary Care Provider] - 1-2 days Time of Disposition: 07:32
[2024-11-06 06:51] VITALS: RESP 18
[2024-11-06 07:26] LABS: Influenza A Not Detected (Not Detectd); Influenza B Not Detected (Not Detectd); RSV Not Detected (Not Detectd)
[2024-11-06 07:43] VITALS: BP 120/76; PULSE 62; TEMP 98.2
== END 2024-11-06 07:42 | disposition home or self-care (01) ==
LOC: EC 06:22
DX: J06.9 Acute upper respiratory infection, unspecified (principal)
CPT/HCPCS: 87636; 99284